=== PATIENT | male | born 1970 | race Caucasian/White ===

== ENCOUNTER 2023-11-12 15:01 | Inpatient (IN) | payer OTHER, BC ==
[~2023-11-12] VITALS: Ht 180.3 cm; Wt 100.0 kg
[2023-11-12] MEDS: normal saline 1000ml 1,000 ML IV SCH (03:21)
[2023-11-12] MEDS ORDERED: NO HOME MEDS (15:29)
[2023-11-12 15:43] LABS: BASOPHILS # (AUTO) 0.1 X10'3 (0-0.2); BASOPHILS % (AUTO) 0.7 % (0-1); EOSINOPHILS # (AUTO) 0.2 X10'3 (0-0.9); EOSINOPHILS % (AUTO) 0.8 % (0-6); HEMATOCRIT 32.2 % (42.0-52.0); HEMOGLOBIN 11.1 g/dl (14.0-17.9); LYMPHOCYTES # (AUTO) 2.3 X10'3 (1.1-4.8); LYMPHOCYTES % (AUTO) 11.5 % (21-51); MEAN CORPUSCULAR HEMOGLOBIN 34.6 PG (27.0-31.0); MEAN CORPUSCULAR HGB CONC 34.5 g/dL (33.0-36.5); MEAN CORPUSCULAR VOLUME 100.3 FL (78-98); MEAN PLATELET VOLUME 8.5 FL (7.4-10.4); MONOCYTES # (AUTO) 2.3 X10'3 (0-0.9); MONOCYTES % (AUTO) 11.6 % (2-12); NEUTROPHILS # (AUTO) 15.3 X10'3 (1.8-7.7); NEUTROPHILS % (AUTO) 75.4 % (42-75); PLATELET COUNT 301 X10'3 (140-440); RED BLOOD COUNT 3.21 X10'6 (4.70-6.10); RED CELL DISTRIBUTION WIDTH 18.7 % (11.5-14.5); WHITE BLOOD COUNT 20.2 X10'3 (4.5-11.0)
[2023-11-12 15:57] LABS: APTT 33 SECONDS (22-32); PROTHROMBIN TIME 20.3 SECONDS (9.0-12.0)
[2023-11-12 16:01] LABS: ANISOCYTOSIS 2+; PLATELET ESTIMATE NORMAL; TOTAL CELLS COUNTED 100
[2023-11-12 16:02] LABS: STOMATOCYTES FEW; TARGET CELLS FEW; TEAR DROP CELLS FEW
[2023-11-12 16:03] LABS: POIKILOCYTOSIS FEW
[2023-11-12 16:08] LABS: ALBUMIN 2.1 G/DL (3.4-5.0); ALKALINE PHOSPHATASE 86 IU/L (46-116); ANION GAP 26 (8-16); BLOOD UREA NITROGEN 67 MG/DL (7-18); CALCIUM 8.9 MG/DL (8.5-10.1); CHLORIDE 90 MMOL/L (99-107); SODIUM 134 MMOL/L (135-145); TOTAL CARBON DIOXIDE 18.3 MMOL/L (24-32)
[2023-11-12 16:32] LABS: GLUCOSE 133 MG/DL (70-104)
[2023-11-12 16:35] LABS: LACTIC SEPSIS 9.4 MMOL/L (0.4-2.0)
[2023-11-12 16:36] LABS: BUN/CREATININE RATIO 12.6 (10.0-20.0); CREATININE 5.31 MG/DL (0.60-1.10); POTASSIUM 2.9 MMOL/L (3.5-5.1); eCRCL 17 ML/MIN; eGFR 11 ML/MIN
[2023-11-12 16:37] LABS: BILIRUBIN,TOTAL 36.1 MG/DL (0.1-1.0); MAGNESIUM 2.1 MG/DL (1.5-2.4); TOTAL PROTEIN 4.9 G/DL (6.4-8.2)
[2023-11-12 16:39] LABS: ALBUMIN/GLOBULIN RATIO 0.8 (1.1-1.5)
[2023-11-12 16:40] LABS: ALANINE AMINOTRANSFERASE 126 U/L (12-78); ASPARTATE AMINO TRANSFERASE 269 U/L (10-37)
[2023-11-12] MEDS ORDERED: potassium 20mEq/D5LR 1000ml bag IV ONE (17:05)
[2023-11-12] MEDS ORDERED: potassium Cl 20mEq in D5-NS 1,000 ML IV ONE (17:15)
[2023-11-12 17:53] LABS: ABG HCO3 15.6 mmol/L (22.0-26.0); ABG OXYGEN SATURATION 93.3 % (94-97); ABG PCO2 (T) 20.9 mmHg (35.0-48.0); ABG PH (T) 7.492 (7.340-7.440); ABG PO2 (T) 72.2 mmHg (75.0-100.0); ALLEN'S TEST POSITIVE; FCOHb 0.7 % (0.0-3.9); FHHb 6.6 % (0.0-5.0); FMetHb 0.4 % (0.0-1.5); FO2Hb 92.3 % (94-97); MODE RA; TOTAL HEMOGLOBIN 10.6 G/dl (14.0-17.9)
[2023-11-12] MEDS: ringers solution, lacted 1,000 ML IV ONE (18:12)
[2023-11-12] MEDS: phenobarbital inj 130 MG in normal saline 100ml IV soln 99 ML IV ONE ×2 (18:29→22:17)
[2023-11-12] MEDS: potassium 20mEq/D5LR 1,000 ML IV ONE (20:14)
[2023-11-12] MEDS ORDERED: temazepam 15mg capsule PO PRN (21:00)
[2023-11-12] MEDS: LidoCAINE 2% Topical Jelly 11mL syringe (UROJET) TOP ONE (21:01)
[2023-11-12] MEDS ORDERED: magnesium 4gm in 100ml NS 100 ML IV PRN (21:10)
[2023-11-12] MEDS ORDERED: HYDROcodone/acetaminophen 10/325mg tab PO PRN (21:10)
[2023-11-12] MEDS ORDERED: ondansetron/PF 4mg/2ml inj IV PRN (21:10)
[2023-11-12] MEDS ORDERED: HYDROcodone/acetaminophen 5mg/325mg tablet PO PRN (21:10)
[2023-11-12] MEDS ORDERED: ondansetron 4mg rapidly disintigrating tab PO PRN (21:10)
[2023-11-12] MEDS ORDERED: magnesium 2GM in 50ml NS 50 ML IV PRN (21:10)
[2023-11-12] MEDS ORDERED: acetaminophen 325mg tablet PO PRN (21:10)
[2023-11-12] MEDS ORDERED: potassium Cl 20 mEq SR tablet PO PRN ×2 (21:10)
[2023-11-12] MEDS ORDERED: magnesium hydroxide 30ml (MOM) UD suspension PO PRN (21:10)
[2023-11-12] MEDS ORDERED: morphine 2 MG/ML inj. syringe IV PRN ×2 (21:10)
[2023-11-12] MEDS ORDERED: magnesium Cl slow-release 64mg tablet PO PRN (21:10)
[2023-11-12] MEDS ORDERED: mag hydrox/Alum hydrox/simeth 30ml oral suspension PO PRN (21:10)
[2023-11-12] MEDS ORDERED: dextrose 50%-water 50ml dispensing syringe IV PRN (21:20)
[2023-11-12] MEDS ORDERED: haloperidol lactate 5mg/ml inj IM PRN (21:20)
[2023-11-12] MEDS ORDERED: LORazepam 2 mg/ml vial IV PRN ×2 (21:20)
[2023-11-12 21:43] LABS: OCCULT BLOOD STOOL POSITIVE (Neg)
[2023-11-12] MEDS: diazepam inj 5 MG/ML inj. ONE (21:46)
[2023-11-12] MEDS ORDERED: pantoprazole 40mg Tablet.DR PO SCH (22:15)
[2023-11-12] MEDS: piperacillin/tazo 4.5gm/100ml 100 ML IV SCH (22:17)
[2023-11-12] MEDS: folic acid 1mg/0.2ml inj IV SCH (22:17)
[2023-11-12] MEDS: diazepam inj 5 MG/ML inj. IV ONE (22:18)
[2023-11-12 22:27] LABS: BILIRUBIN,URINE LARGE (Neg); CLARITY,URINE TURBID (Clear); COLOR,URINE GREEN (Yellow); GLUCOSE, URINE 100 mg/dl (Neg); KETONES,URINE TRACE mg/dl (Neg); LEUKOCYTE ESTERASE ,URINE NEGATIVE (Neg); NITRITES, URINE NEGATIVE (Neg); OCCULT BLOOD,URINE SMALL (Neg); PH,URINE 6.5 (4.8-8.0); PROTEIN,URINE 30 mg/dl (Neg)
[2023-11-12 22:38] LABS: UA COLLECTION TYPE STRAIGHT CATH
[2023-11-12 22:39] LABS: RBC,URINE 0-2 /HPF (0-2); SQUAMOUS EPITHELIAL CELL,UR FEW /LPF (FEW); TRANSITIONAL EPI CELLS,URINE FEW /HPF; WBC,URINE 0-4 /HPF (0-4)
[2023-11-12 22:40] LABS: AMORPHOUS PHOSPHATES 2+
[2023-11-12 22:41] LABS: BACTERIA,URINE 2+ /HPF (Neg); URINE AMPHETAMINE SCREEN NEGATIVE (Neg); URINE BARBITUATE SCREEN NEGATIVE (Neg); URINE BENZODIAZEPINES SCREEN NEGATIVE (Neg); URINE CANNABINOID SCREEN NEGATIVE (Neg); URINE COCAINE SCREEN NEGATIVE (Neg); URINE METHADONE SCREEN NEGATIVE (Neg); URINE OPIATE SCREEN NEGATIVE (Neg); URINE PHENCYCLIDINE SCREEN NEGATIVE (Neg)
[2023-11-12] MEDS: octreotide inj. 500 MCG in normal saline 100ml IV soln 97.5 ML IV SCH (23:00)
[2023-11-13] VITALS (10 sets, daily range): BP systolic 96–128; BP diastolic 42–64; PULSE 73–93; RESP 13–22; TEMP 98.5–99.5; O2SAT 91–95
[2023-11-13 01:27] LABS: APTT 36 SECONDS (22-32); INR 2.3 INR; PROTHROMBIN TIME 22.9 SECONDS (9.0-12.0)
[2023-11-13 01:39] LABS: MAGNESIUM 1.9 MG/DL (1.5-2.4)
[2023-11-13 01:42] LABS: PHOSPHORUS 5.4 MG/DL (2.3-4.5)
[2023-11-13] MEDS: normal saline 1000ml 1,000 ML IV SCH (02:09)
[2023-11-13] MEDS ORDERED: albumin (human) 25% 100 ML IV solution IV ONE (04:20)
[2023-11-13] MEDS: albumin (human) 25% 100 ML IV solution IV ONE (04:22)
[2023-11-13] MEDS: lactulose 20gm/30ml cup PO SCH (04:43)
[2023-11-13] MEDS: vancomycin/NS 1 GM ADD-VANTAGE 250 ML IV ONE (05:29)
[2023-11-13 06:29] LABS: BASOPHILS # (AUTO) 0.1 X10'3 (0-0.2); BASOPHILS % (AUTO) 0.7 % (0-1); EOSINOPHILS # (AUTO) 0.1 X10'3 (0-0.9); EOSINOPHILS % (AUTO) 1.6 % (0-6); HEMOGLOBIN 7.6 g/dl (14.0-17.9); LYMPHOCYTES # (AUTO) 1.2 X10'3 (1.1-4.8); LYMPHOCYTES % (AUTO) 13.9 % (21-51); MEAN CORPUSCULAR HEMOGLOBIN 35.5 PG (27.0-31.0); MEAN CORPUSCULAR VOLUME 101.4 FL (78-98); MONOCYTES % (AUTO) 12.2 % (2-12); NEUTROPHILS # (AUTO) 6.1 X10'3 (1.8-7.7); NEUTROPHILS % (AUTO) 71.6 % (42-75); PLATELET COUNT 127 X10'3 (140-440); RED BLOOD COUNT 2.14 X10'6 (4.70-6.10); RED CELL DISTRIBUTION WIDTH 19.2 % (11.5-14.5); WHITE BLOOD COUNT 8.6 X10'3 (4.5-11.0)
[2023-11-13 06:51] LABS: APTT 38 SECONDS (22-32); INR 2.4 INR; PROTHROMBIN TIME 24.2 SECONDS (9.0-12.0)
[2023-11-13 07:01] LABS: HEMATOCRIT 21.7 % (42.0-52.0)
[2023-11-13 07:15] LABS: ALANINE AMINOTRANSFERASE 115 U/L (12-78); ALBUMIN 2.4 G/DL (3.4-5.0); ALKALINE PHOSPHATASE 58 IU/L (46-116); ANION GAP 21 (8-16); BLOOD UREA NITROGEN 78 MG/DL (7-18); BUN/CREATININE RATIO 12.5 (10.0-20.0); CALCIUM 7.6 MG/DL (8.5-10.1); CHLORIDE 94 MMOL/L (99-107); CREATININE 6.22 MG/DL (0.60-1.10); SODIUM 132 MMOL/L (135-145); TOTAL CARBON DIOXIDE 17.2 MMOL/L (24-32); eCRCL 15 ML/MIN; eGFR 10 ML/MIN
[2023-11-13 07:18] LABS: ASPARTATE AMINO TRANSFERASE 245 U/L (10-37); BILIRUBIN,TOTAL 31.9 MG/DL (0.1-1.0); GLUCOSE 137 MG/DL (70-104); POTASSIUM 2.8 MMOL/L (3.5-5.1)
[2023-11-13 07:37] LABS: ALBUMIN/GLOBULIN RATIO 1.3 (1.1-1.5); TOTAL PROTEIN 4.3 G/DL (6.4-8.2)
[2023-11-13] MEDS ORDERED: thiamine 100mg/ml 2ml inj. IV SCH (08:00)
[2023-11-13] MEDS: K and/or MAG REPLACEMENT MC SCH (08:00)
[2023-11-13] MEDS: VANCOMYCIN 750MG IV in NS 250 ML IV ONE (08:56)
[2023-11-13] MEDS: potassium Cl 40MEQ/1/2NS 520ml 520 ML IV PRN (09:02)
[2023-11-13] MEDS: thiamine 100mg/ml 2ml inj. IV SCH (09:04)
[2023-11-13] MEDS ORDERED: octreotide inj. 500 MCG in normal saline 100ml IV soln 97.5 ML IV SCH (11:55)
[2023-11-13] MEDS: carvedilol 6.25mg tablet PO SCH (13:35)
[2023-11-13] MEDS ORDERED: piperacillin/tazo 3.375gm/50ml 100 ML IV SCH (13:47)
[2023-11-13 14:23] LABS: ALBUMIN 2.3 G/DL (3.4-5.0); ALKALINE PHOSPHATASE 57 IU/L (46-116); ANION GAP 16 (8-16); BLOOD UREA NITROGEN 89 MG/DL (7-18); CALCIUM 7.3 MG/DL (8.5-10.1); CHLORIDE 99 MMOL/L (99-107); SODIUM 134 MMOL/L (135-145); TOTAL CARBON DIOXIDE 19.3 MMOL/L (24-32)
[2023-11-13 14:29] LABS: ALANINE AMINOTRANSFERASE 115 U/L (12-78); ASPARTATE AMINO TRANSFERASE 235 U/L (10-37); BUN/CREATININE RATIO 14.9 (10.0-20.0); CREATININE 5.97 MG/DL (0.60-1.10); GLUCOSE 150 MG/DL (70-104); eCRCL 15 ML/MIN; eGFR 10 ML/MIN
[2023-11-13 14:42] LABS: ALBUMIN/GLOBULIN RATIO 1.2 (1.1-1.5); TOTAL PROTEIN 4.2 G/DL (6.4-8.2)
[2023-11-13] MEDS: octreotide inj. 500 MCG in normal saline 100ml IV soln 97.5 ML IV SCH (15:56)
[2023-11-13 16:07] LABS: C DIFF ANTIGEN POSITIVE (NEGATIVE); C DIFF SPECIMEN=DIARRHEA? ACCEPTABLE
[2023-11-13 16:10] LABS: C DIFFICILE TOXINS A&B POSITIVE (Neg)
[2023-11-13] MEDS ORDERED: vancomycin 250MG/10ML UD oral solution 10ML BOTTLE PO SCH (17:30)
[2023-11-13] MEDS ORDERED: rifaximin 550mg tablet PO SCH (20:00)
[2023-11-13] MEDS: VANCOMYCIN 125 MG/5 ML oral SOLN.RECON 5mL UD syringe (FIRVANQ) PO SCH (20:59)
[2023-11-13] MEDS: pantoprazole 40MG/NS 100ML BAG 100 ML IV SCH (21:05)
[2023-11-14] VITALS (8 sets, daily range): BP systolic 106–142; BP diastolic 50–78; PULSE 69–94; RESP 15–20; TEMP 96.5–99.1; O2SAT 93–96
[2023-11-14 04:59] LABS: EOSINOPHILS # (AUTO) 0.3 X10'3 (0-0.9); MEAN PLATELET VOLUME 8.3 FL (7.4-10.4); RED CELL DISTRIBUTION WIDTH 18.9 % (11.5-14.5)
[2023-11-14 05:00] LABS: BASOPHILS % (AUTO) 0.5 % (0-1); EOSINOPHILS % (AUTO) 2.9 % (0-6); LYMPHOCYTES # (AUTO) 1.2 X10'3 (1.1-4.8); LYMPHOCYTES % (AUTO) 12.4 % (21-51); MEAN CORPUSCULAR HEMOGLOBIN 36.1 PG (27.0-31.0); MEAN CORPUSCULAR HGB CONC 35.7 g/dL (33.0-36.5); MEAN CORPUSCULAR VOLUME 101.1 FL (78-98); MONOCYTES # (AUTO) 1.1 X10'3 (0-0.9); MONOCYTES % (AUTO) 11.4 % (2-12); NEUTROPHILS % (AUTO) 72.8 % (42-75); PLATELET COUNT 132 X10'3 (140-440); RED BLOOD COUNT 2.12 X10'6 (4.70-6.10); WHITE BLOOD COUNT 9.6 X10'3 (4.5-11.0)
[2023-11-14 05:17] LABS: HEMATOCRIT 21.4 % (42.0-52.0); HEMOGLOBIN 7.6 g/dl (14.0-17.9)
[2023-11-14 05:20] LABS: APTT 37 SECONDS (22-32); INR 2.3 INR; PROTHROMBIN TIME 22.9 SECONDS (9.0-12.0)
[2023-11-14 05:32] LABS: ALANINE AMINOTRANSFERASE 104 U/L (12-78); ALBUMIN 2.1 G/DL (3.4-5.0); ANION GAP 18 (8-16); BLOOD UREA NITROGEN 97 MG/DL (7-18); BUN/CREATININE RATIO 16.7 (10.0-20.0); CALCIUM 6.9 MG/DL (8.5-10.1); CHLORIDE 102 MMOL/L (99-107); SODIUM 137 MMOL/L (135-145); TOTAL CARBON DIOXIDE 17.4 MMOL/L (24-32); eCRCL 16 ML/MIN; eGFR 10 ML/MIN
[2023-11-14 05:38] LABS: ALKALINE PHOSPHATASE 58 IU/L (46-116); ASPARTATE AMINO TRANSFERASE 214 U/L (10-37); BILIRUBIN,TOTAL 34.7 MG/DL (0.1-1.0); GLUCOSE 137 MG/DL (70-104); MAGNESIUM 2.1 MG/DL (1.5-2.4); PHOSPHORUS 2.7 MG/DL (2.3-4.5)
[2023-11-14 05:54] LABS: ALBUMIN/GLOBULIN RATIO 1.1 (1.1-1.5); TOTAL PROTEIN 4.1 G/DL (6.4-8.2)
[2023-11-14 06:01] LABS: POTASSIUM 2.8 MMOL/L (3.5-5.1)
[2023-11-14 06:12] LABS: ANISOCYTOSIS 2+; PLATELET ESTIMATE DECREASED; TOTAL CELLS COUNTED 100
[2023-11-15] VITALS (8 sets, daily range): BP systolic 90–158; BP diastolic 55–92; PULSE 64–91; RESP 14–22; TEMP 97–98; O2SAT 94–98
[2023-11-15 05:57] LABS: HBSAG SCREEN Negative (Negative); HEP A AB, IGM Negative (Negative); HEP B CORE AB, IGM Negative (Negative); HEPATITIS C VIRUS ANTIBODY Non Reactive (Non Reactive)
[2023-11-15 08:07] LABS: BASOPHILS # (AUTO) 0.1 X10'3 (0-0.2); BASOPHILS % (AUTO) 0.9 % (0-1); EOSINOPHILS # (AUTO) 0.5 X10'3 (0-0.9); EOSINOPHILS % (AUTO) 4.6 % (0-6); HEMOGLOBIN 7.1 g/dl (14.0-17.9); LYMPHOCYTES # (AUTO) 1.6 X10'3 (1.1-4.8); MEAN CORPUSCULAR HEMOGLOBIN 36.4 PG (27.0-31.0); MEAN CORPUSCULAR HGB CONC 36.3 g/dL (33.0-36.5); MEAN CORPUSCULAR VOLUME 100.2 FL (78-98); MEAN PLATELET VOLUME 8.1 FL (7.4-10.4); MONOCYTES % (AUTO) 10.3 % (2-12); NEUTROPHILS # (AUTO) 6.9 X10'3 (1.8-7.7); NEUTROPHILS % (AUTO) 68.2 % (42-75); PLATELET COUNT 129 X10'3 (140-440); RED BLOOD COUNT 1.96 X10'6 (4.70-6.10); RED CELL DISTRIBUTION WIDTH 18.9 % (11.5-14.5); WHITE BLOOD COUNT 10.1 X10'3 (4.5-11.0)
[2023-11-15 08:12] LABS: HEMATOCRIT 19.6 % (42.0-52.0)
[2023-11-15 08:13] LABS: APTT 37 SECONDS (22-32); PROTHROMBIN TIME 20.3 SECONDS (9.0-12.0)
[2023-11-15 08:35] LABS: ALBUMIN 1.9 G/DL (3.4-5.0); ALKALINE PHOSPHATASE 62 IU/L (46-116); ANION GAP 12 (8-16); BLOOD UREA NITROGEN 100 MG/DL (7-18); CALCIUM 6.3 MG/DL (8.5-10.1); CHLORIDE 107 MMOL/L (99-107); SODIUM 136 MMOL/L (135-145); TOTAL CARBON DIOXIDE 17.5 MMOL/L (24-32)
[2023-11-15 08:38] LABS: NUCLEATED RED BLOOD CELLS 1 /100WBC (0-0); PLATELET ESTIMATE DECREASED; TOTAL CELLS COUNTED 100
[2023-11-15 08:39] LABS: ANISOCYTOSIS 2+
[2023-11-15 08:40] LABS: POIKILOCYTOSIS FEW; POLYCHROMASIA FEW; SMUDGE CELLS FEW
[2023-11-15 09:23] LABS: ALANINE AMINOTRANSFERASE 100 U/L (12-78); ASPARTATE AMINO TRANSFERASE 187 U/L (10-37); BILIRUBIN,TOTAL 33.7 MG/DL (0.1-1.0); BUN/CREATININE RATIO 21.8 (10.0-20.0); CREATININE 4.59 MG/DL (0.60-1.10); GLUCOSE 138 MG/DL (70-104); MAGNESIUM 2.1 MG/DL (1.5-2.4); PHOSPHORUS 2.6 MG/DL (2.3-4.5); eCRCL 20 ML/MIN; eGFR 14 ML/MIN
[2023-11-15 09:26] LABS: ALBUMIN/GLOBULIN RATIO 1.1 (1.1-1.5); TOTAL PROTEIN 3.7 G/DL (6.4-8.2)
[2023-11-15 09:28] LABS: POTASSIUM 2.7 MMOL/L (3.5-5.1)
[2023-11-15] MEDS ORDERED: LORazepam 2 mg/ml vial IV PRN (10:05)
[2023-11-15] MEDS ORDERED: Potassium Cl inj 20 MEQ in normal saline 1000ml 990 ML IV SCH (10:10)
[2023-11-15] MEDS: potassium Cl 20mEq in NS 1,000 ML IV SCH (11:01)
[2023-11-16] VITALS (8 sets, daily range): BP systolic 107–150; BP diastolic 47–60; PULSE 70–99; RESP 13–22; TEMP 97.3–98.2; O2SAT 94–100
[2023-11-16 06:44] LABS: BASOPHILS # (AUTO) 0.2 X10'3 (0-0.2); BASOPHILS % (AUTO) 1.3 % (0-1); EOSINOPHILS # (AUTO) 0.6 X10'3 (0-0.9); EOSINOPHILS % (AUTO) 4.3 % (0-6); HEMOGLOBIN 7.6 g/dl (14.0-17.9); LYMPHOCYTES # (AUTO) 1.8 X10'3 (1.1-4.8); LYMPHOCYTES % (AUTO) 13.8 % (21-51); MEAN CORPUSCULAR HEMOGLOBIN 35.4 PG (27.0-31.0); MEAN CORPUSCULAR VOLUME 100.9 FL (78-98); MEAN PLATELET VOLUME 7.7 FL (7.4-10.4); MONOCYTES # (AUTO) 1.3 X10'3 (0-0.9); NEUTROPHILS # (AUTO) 9.3 X10'3 (1.8-7.7); NEUTROPHILS % (AUTO) 70.6 % (42-75); PLATELET COUNT 168 X10'3 (140-440); RED BLOOD COUNT 2.15 X10'6 (4.70-6.10); RED CELL DISTRIBUTION WIDTH 19.1 % (11.5-14.5); WHITE BLOOD COUNT 13.2 X10'3 (4.5-11.0)
[2023-11-16 06:45] LABS: INR 1.8 INR; PROTHROMBIN TIME 18.4 SECONDS (9.0-12.0)
[2023-11-16 06:47] LABS: HEMATOCRIT 21.7 % (42.0-52.0)
[2023-11-16 07:07] LABS: ALANINE AMINOTRANSFERASE 100 U/L (12-78); ALBUMIN 1.9 G/DL (3.4-5.0); ALKALINE PHOSPHATASE 78 IU/L (46-116); ANION GAP 15 (8-16); BLOOD UREA NITROGEN 86 MG/DL (7-18); BUN/CREATININE RATIO 22.8 (10.0-20.0); CALCIUM 6.1 MG/DL (8.5-10.1); CHLORIDE 104 MMOL/L (99-107); CREATININE 3.78 MG/DL (0.60-1.10); SODIUM 132 MMOL/L (135-145); eCRCL 24 ML/MIN; eGFR 17 ML/MIN
[2023-11-16 07:13] LABS: ANISOCYTOSIS 2+; NUCLEATED RED BLOOD CELLS 1 /100WBC (0-0); PLATELET ESTIMATE NORMAL; TOTAL CELLS COUNTED 100
[2023-11-16 07:14] LABS: POLYCHROMASIA 2+; TARGET CELLS FEW
[2023-11-16 07:15] LABS: POIKILOCYTOSIS FEW
[2023-11-16 07:26] LABS: ASPARTATE AMINO TRANSFERASE 191 U/L (10-37); BILIRUBIN,TOTAL 35.8 MG/DL (0.1-1.0); GLUCOSE 141 MG/DL (70-104); PHOSPHORUS 2.6 MG/DL (2.3-4.5); TOTAL PROTEIN 3.8 G/DL (6.4-8.2)
[2023-11-16 07:29] LABS: POTASSIUM 2.9 MMOL/L (3.5-5.1); TOTAL CARBON DIOXIDE 13.2 MMOL/L (24-32)
[2023-11-16] MEDS ORDERED: thiamine 100mg/ml 2ml inj. IV SCH (08:00)
[2023-11-16] MEDS ORDERED: potassium Cl 40MEQ/1/2NS 520ml 520 ML IV PRN (16:50)
[2023-11-16] MEDS ORDERED: magnesium 4gm in 100ml NS 100 ML IV PRN (16:50)
[2023-11-16] MEDS ORDERED: magnesium 2GM in 50ml NS 50 ML IV PRN (16:50)
[2023-11-16] MEDS ORDERED: magnesium Cl slow-release 64mg tablet PO PRN (16:50)
[2023-11-16 18:41] LABS: BASOPHILS # (AUTO) 0.1 X10'3 (0-0.2); HEMATOCRIT 22.3 % (42.0-52.0); LYMPHOCYTES % (AUTO) 10.9 % (21-51)
[2023-11-16 18:43] LABS: EOSINOPHILS # (AUTO) 0.5 X10'3 (0-0.9); EOSINOPHILS % (AUTO) 3.7 % (0-6); HEMOGLOBIN 7.8 g/dl (14.0-17.9); LYMPHOCYTES # (AUTO) 1.5 X10'3 (1.1-4.8); MEAN CORPUSCULAR HEMOGLOBIN 35.7 PG (27.0-31.0); MEAN CORPUSCULAR HGB CONC 35.1 g/dL (33.0-36.5); MEAN CORPUSCULAR VOLUME 101.6 FL (78-98); MONOCYTES # (AUTO) 1.5 X10'3 (0-0.9); MONOCYTES % (AUTO) 10.4 % (2-12); NEUTROPHILS # (AUTO) 10.5 X10'3 (1.8-7.7); PLATELET COUNT 175 X10'3 (140-440); RED CELL DISTRIBUTION WIDTH 19.1 % (11.5-14.5); WHITE BLOOD COUNT 14.2 X10'3 (4.5-11.0)
[2023-11-16 19:09] LABS: ALBUMIN 1.9 G/DL (3.4-5.0); ALKALINE PHOSPHATASE 97 IU/L (46-116); BLOOD UREA NITROGEN 82 MG/DL (7-18); CALCIUM 6.6 MG/DL (8.5-10.1)
[2023-11-16 19:34] LABS: TOTAL CELLS COUNTED 100
[2023-11-16 19:35] LABS: ANISOCYTOSIS 2+; PLATELET ESTIMATE NORMAL; POIKILOCYTOSIS FEW; POLYCHROMASIA 1+
[2023-11-16 19:36] LABS: TARGET CELLS FEW
[2023-11-16 19:45] LABS: ALANINE AMINOTRANSFERASE 98 U/L (12-78); ALBUMIN/GLOBULIN RATIO 0.9 (1.1-1.5); ANION GAP 21 (8-16); ASPARTATE AMINO TRANSFERASE 176 U/L (10-37); BUN/CREATININE RATIO 24.9 (10.0-20.0); CHLORIDE 101 MMOL/L (99-107); CREATININE 3.29 MG/DL (0.60-1.10); GLUCOSE 137 MG/DL (70-104); SODIUM 136 MMOL/L (135-145); eCRCL 28 ML/MIN; eGFR 20 ML/MIN
[2023-11-16 20:17] LABS: BILIRUBIN,TOTAL 37.1 MG/DL (0.1-1.0)
[2023-11-16 20:23] LABS: POTASSIUM 2.9 MMOL/L (3.5-5.1); TOTAL CARBON DIOXIDE 13.8 MMOL/L (24-32)
[2023-11-16] MEDS: rifaximin 550mg tablet PO SCH (20:40)
[2023-11-17] VITALS (8 sets, daily range): BP systolic 109–159; BP diastolic 49–89; PULSE 70–84; RESP 12–28; TEMP 97–97.8; O2SAT 94–99
[2023-11-17 06:51] LABS: BASOPHILS # (AUTO) 0.1 X10'3 (0-0.2); BASOPHILS % (AUTO) 0.7 % (0-1); EOSINOPHILS # (AUTO) 0.5 X10'3 (0-0.9); EOSINOPHILS % (AUTO) 3.8 % (0-6); HEMATOCRIT 22.1 % (42.0-52.0); HEMOGLOBIN 7.6 g/dl (14.0-17.9); LYMPHOCYTES # (AUTO) 1.1 X10'3 (1.1-4.8); LYMPHOCYTES % (AUTO) 9.4 % (21-51); MEAN CORPUSCULAR HEMOGLOBIN 35.6 PG (27.0-31.0); MEAN CORPUSCULAR HGB CONC 34.3 g/dL (33.0-36.5); MEAN CORPUSCULAR VOLUME 103.9 FL (78-98); MEAN PLATELET VOLUME 7.5 FL (7.4-10.4); MONOCYTES # (AUTO) 1.1 X10'3 (0-0.9); MONOCYTES % (AUTO) 9.3 % (2-12); NEUTROPHILS # (AUTO) 9.3 X10'3 (1.8-7.7); NEUTROPHILS % (AUTO) 76.8 % (42-75); PLATELET COUNT 154 X10'3 (140-440); RED BLOOD COUNT 2.12 X10'6 (4.70-6.10); RED CELL DISTRIBUTION WIDTH 19.5 % (11.5-14.5); WHITE BLOOD COUNT 12.1 X10'3 (4.5-11.0)
[2023-11-17 06:59] LABS: INR 1.7 INR; PROTHROMBIN TIME 17.5 SECONDS (9.0-12.0)
[2023-11-17 07:19] LABS: ALBUMIN 1.9 G/DL (3.4-5.0); ALKALINE PHOSPHATASE 109 IU/L (46-116); ANION GAP 15 (8-16); BLOOD UREA NITROGEN 78 MG/DL (7-18); CALCIUM 6.5 MG/DL (8.5-10.1); CHLORIDE 106 MMOL/L (99-107); SODIUM 134 MMOL/L (135-145)
[2023-11-17 07:34] LABS: ANISOCYTOSIS 2+; PLATELET ESTIMATE NORMAL; TOTAL CELLS COUNTED 100
[2023-11-17 07:35] LABS: POIKILOCYTOSIS FEW; POLYCHROMASIA 1+
[2023-11-17 07:39] LABS: ALANINE AMINOTRANSFERASE 99 U/L (12-78); BUN/CREATININE RATIO 26.2 (10.0-20.0); CREATININE 2.98 MG/DL (0.60-1.10); GLUCOSE 149 MG/DL (70-104); PHOSPHORUS 2.8 MG/DL (2.3-4.5); TOTAL PROTEIN 3.9 G/DL (6.4-8.2); eCRCL 31 ML/MIN; eGFR 22 ML/MIN
[2023-11-17 07:43] LABS: BILIRUBIN,TOTAL 36.9 MG/DL (0.1-1.0)
[2023-11-17 07:47] LABS: TOTAL CARBON DIOXIDE 13.1 MMOL/L (24-32)
[2023-11-17 08:10] LABS: ASPARTATE AMINO TRANSFERASE 185 U/L (10-37)
[2023-11-17] MEDS: folic acid 1mg tablet PO SCH (09:11)
[2023-11-17] MEDS: thiamine 100mg tablet PO SCH (09:11)
[2023-11-17] MEDS ORDERED: spironolactone 25 MG tablet PO ONE (09:15)
[2023-11-17] MEDS: spironolactone 50 MG tablet PO ONE (13:32)
[2023-11-18] VITALS (7 sets, daily range): BP systolic 100–136; BP diastolic 45–70; PULSE 61–79; RESP 13–20; TEMP 97.3–98; O2SAT 97–100
[2023-11-18 10:00] LABS: BASOPHILS # (AUTO) 0.1 X10'3 (0-0.2); BASOPHILS % (AUTO) 0.7 % (0-1); EOSINOPHILS # (AUTO) 0.4 X10'3 (0-0.9); EOSINOPHILS % (AUTO) 2.9 % (0-6); HEMATOCRIT 24.4 % (42.0-52.0); HEMOGLOBIN 8.3 g/dl (14.0-17.9); LYMPHOCYTES # (AUTO) 0.8 X10'3 (1.1-4.8); LYMPHOCYTES % (AUTO) 6.2 % (21-51); MEAN CORPUSCULAR HEMOGLOBIN 35.4 PG (27.0-31.0); MEAN CORPUSCULAR HGB CONC 34.2 g/dL (33.0-36.5); MEAN CORPUSCULAR VOLUME 103.5 FL (78-98); MEAN PLATELET VOLUME 7.6 FL (7.4-10.4); MONOCYTES # (AUTO) 1.1 X10'3 (0-0.9); MONOCYTES % (AUTO) 8.1 % (2-12); NEUTROPHILS # (AUTO) 11.1 X10'3 (1.8-7.7); NEUTROPHILS % (AUTO) 82.1 % (42-75); PLATELET COUNT 144 X10'3 (140-440); RED BLOOD COUNT 2.36 X10'6 (4.70-6.10); RED CELL DISTRIBUTION WIDTH 21.4 % (11.5-14.5); WHITE BLOOD COUNT 13.6 X10'3 (4.5-11.0)
[2023-11-18 10:14] LABS: ALANINE AMINOTRANSFERASE 96 U/L (12-78); ALBUMIN 1.8 G/DL (3.4-5.0); ANION GAP 15 (8-16); BLOOD UREA NITROGEN 61 MG/DL (7-18); BUN/CREATININE RATIO 20.7 (10.0-20.0); CALCIUM 6.4 MG/DL (8.5-10.1); CHLORIDE 107 MMOL/L (99-107); CREATININE 2.94 MG/DL (0.60-1.10); SODIUM 134 MMOL/L (135-145); eCRCL 31 ML/MIN; eGFR 23 ML/MIN
[2023-11-18 10:34] LABS: ALBUMIN/GLOBULIN RATIO 0.8 (1.1-1.5); ASPARTATE AMINO TRANSFERASE 165 U/L (10-37); BILIRUBIN,TOTAL 35.5 MG/DL (0.1-1.0); GLUCOSE 178 MG/DL (70-104); POTASSIUM 3.2 MMOL/L (3.5-5.1); TOTAL PROTEIN 4.2 G/DL (6.4-8.2)
[2023-11-18 10:36] LABS: TOTAL CARBON DIOXIDE 12.1 MMOL/L (24-32)
[2023-11-18 10:48] LABS: TOTAL CELLS COUNTED 100
[2023-11-18 10:50] LABS: ANISOCYTOSIS 3+; PLATELET ESTIMATE NORMAL
[2023-11-18 10:52] LABS: POLYCHROMASIA FEW; STOMATOCYTES FEW; TARGET CELLS FEW; TEAR DROP CELLS 1+
[2023-11-18 10:59] LABS: ALKALINE PHOSPHATASE 109 IU/L (46-116)
[2023-11-18] MEDS: sodium bicarbonate 650mg tablet PO SCH (17:45)
[2023-11-19] VITALS (9 sets, daily range): BP systolic 93–119; BP diastolic 52–65; PULSE 66–78; RESP 11–20; TEMP 95.6–98.4; O2SAT 96–98
[2023-11-19 07:18] LABS: ALBUMIN 1.6 G/DL (3.4-5.0); ANION GAP 15 (8-16); BLOOD UREA NITROGEN 59 MG/DL (7-18); CALCIUM 6.4 MG/DL (8.5-10.1); CHLORIDE 111 MMOL/L (99-107); SODIUM 136 MMOL/L (135-145)
[2023-11-19 07:32] LABS: ALANINE AMINOTRANSFERASE 87 U/L (12-78); ALKALINE PHOSPHATASE 121 IU/L (46-116); ASPARTATE AMINO TRANSFERASE 160 U/L (10-37)
[2023-11-19 07:33] LABS: BILIRUBIN,TOTAL 34.6 MG/DL (0.1-1.0); BUN/CREATININE RATIO 20.6 (10.0-20.0); CREATININE 2.86 MG/DL (0.60-1.10); GLUCOSE 136 MG/DL (70-104); POTASSIUM 3.7 MMOL/L (3.5-5.1); eCRCL 32 ML/MIN; eGFR 23 ML/MIN
[2023-11-19 07:36] LABS: ALBUMIN/GLOBULIN RATIO 0.7 (1.1-1.5); TOTAL PROTEIN 3.8 G/DL (6.4-8.2)
[2023-11-19 09:29] LABS: BASOPHILS # (AUTO) 0.1 X10'3 (0-0.2); BASOPHILS % (AUTO) 0.7 % (0-1); EOSINOPHILS # (AUTO) 0.4 X10'3 (0-0.9); EOSINOPHILS % (AUTO) 3.1 % (0-6); HEMATOCRIT 25.1 % (42.0-52.0); HEMOGLOBIN 8.6 g/dl (14.0-17.9); LYMPHOCYTES % (AUTO) 7.9 % (21-51); MEAN CORPUSCULAR HEMOGLOBIN 35.7 PG (27.0-31.0); MEAN CORPUSCULAR HGB CONC 34.3 g/dL (33.0-36.5); MEAN PLATELET VOLUME 7.9 FL (7.4-10.4); MONOCYTES # (AUTO) 1.2 X10'3 (0-0.9); MONOCYTES % (AUTO) 9.5 % (2-12); NEUTROPHILS % (AUTO) 78.8 % (42-75); PLATELET COUNT 138 X10'3 (140-440); RED BLOOD COUNT 2.42 X10'6 (4.70-6.10); RED CELL DISTRIBUTION WIDTH 21.9 % (11.5-14.5); WHITE BLOOD COUNT 12.7 X10'3 (4.5-11.0)
[2023-11-19] MEDS: sodium bicarbonate 1meq/ml inj 150 ML in dextrose 5%-water 1,000 ML IV SCH (10:44)
[2023-11-19 10:53] LABS: TOTAL CELLS COUNTED 100
[2023-11-19 10:54] LABS: PLATELET ESTIMATE DECREASED
[2023-11-19 10:55] LABS: ANISOCYTOSIS 3+; TEAR DROP CELLS FEW
[2023-11-20] VITALS (7 sets, daily range): BP systolic 114–126; BP diastolic 53–68; PULSE 70–81; RESP 12–20; TEMP 97.3–98.2; O2SAT 96–98
[2023-11-20 09:10] LABS: BASOPHILS # (AUTO) 0.1 X10'3 (0-0.2); BASOPHILS % (AUTO) 0.5 % (0-1); EOSINOPHILS # (AUTO) 0.4 X10'3 (0-0.9); EOSINOPHILS % (AUTO) 3.9 % (0-6); HEMATOCRIT 25.1 % (42.0-52.0); HEMOGLOBIN 8.7 g/dl (14.0-17.9); MEAN CORPUSCULAR HEMOGLOBIN 35.7 PG (27.0-31.0); MEAN CORPUSCULAR HGB CONC 34.6 g/dL (33.0-36.5); MEAN CORPUSCULAR VOLUME 103.2 FL (78-98); MEAN PLATELET VOLUME 8.3 FL (7.4-10.4); MONOCYTES % (AUTO) 9.5 % (2-12); NEUTROPHILS # (AUTO) 7.8 X10'3 (1.8-7.7); NEUTROPHILS % (AUTO) 76.1 % (42-75); PLATELET COUNT 119 X10'3 (140-440); RED BLOOD COUNT 2.43 X10'6 (4.70-6.10); RED CELL DISTRIBUTION WIDTH 21.3 % (11.5-14.5); WHITE BLOOD COUNT 10.3 X10'3 (4.5-11.0)
[2023-11-20 09:28] LABS: APTT 32 SECONDS (22-32); INR 1.5 INR; PROTHROMBIN TIME 16.1 SECONDS (9.0-12.0)
[2023-11-20 09:31] LABS: TOTAL CELLS COUNTED 100
[2023-11-20 09:32] LABS: ANISOCYTOSIS 3+; PLATELET ESTIMATE DECREASED; POLYCHROMASIA FEW; SMUDGE CELLS FEW; TEAR DROP CELLS FEW
[2023-11-20 09:33] LABS: TARGET CELLS FEW
[2023-11-20 09:53] LABS: ALANINE AMINOTRANSFERASE 98 U/L (12-78); ALBUMIN 1.6 G/DL (3.4-5.0); ALKALINE PHOSPHATASE 170 IU/L (46-116); ANION GAP 14 (8-16); ASPARTATE AMINO TRANSFERASE 139 U/L (10-37); BILIRUBIN,TOTAL 33.8 MG/DL (0.1-1.0); BLOOD UREA NITROGEN 57 MG/DL (7-18); BUN/CREATININE RATIO 17.6 (10.0-20.0); CALCIUM 6.3 MG/DL (8.5-10.1); CHLORIDE 107 MMOL/L (99-107); CREATININE 3.23 MG/DL (0.60-1.10); GLUCOSE 139 MG/DL (70-104); MAGNESIUM 2.1 MG/DL (1.5-2.4); SODIUM 137 MMOL/L (135-145); TOTAL CARBON DIOXIDE 15.6 MMOL/L (24-32); eCRCL 28 ML/MIN; eGFR 20 ML/MIN
[2023-11-20 10:04] LABS: POTASSIUM 2.8 MMOL/L (3.5-5.1)
[2023-11-20] MEDS: potassium Cl 20 mEq SR tablet PO PRN (10:09)
[2023-11-20 10:16] LABS: ALBUMIN/GLOBULIN RATIO 0.6 (1.1-1.5); TOTAL PROTEIN 4.2 G/DL (6.4-8.2)
[2023-11-20] MEDS: albumin (human) 25% 100ml IV 100 ML IV SCH (17:01)
[2023-11-20] MEDS: lactose-reduced food (Ensure Enlive) - 237ml bottle PO SCH (17:09)
[2023-11-20] MEDS: spironolactone 50 MG tablet PO SCH (20:33)
[2023-11-21] VITALS (8 sets, daily range): BP systolic 104–129; BP diastolic 51–80; PULSE 67–80; RESP 15–20; TEMP 97.8–98.7; O2SAT 94–98
[2023-11-21 08:05] LABS: BASOPHILS # (AUTO) 0.1 X10'3 (0-0.2); BASOPHILS % (AUTO) 0.8 % (0-1); EOSINOPHILS # (AUTO) 0.3 X10'3 (0-0.9); HEMATOCRIT 24.2 % (42.0-52.0); HEMOGLOBIN 8.2 g/dl (14.0-17.9); LYMPHOCYTES # (AUTO) 1.1 X10'3 (1.1-4.8); LYMPHOCYTES % (AUTO) 11.3 % (21-51); MEAN CORPUSCULAR HEMOGLOBIN 35.3 PG (27.0-31.0); MEAN CORPUSCULAR HGB CONC 33.9 g/dL (33.0-36.5); MEAN CORPUSCULAR VOLUME 104.3 FL (78-98); MEAN PLATELET VOLUME 8.1 FL (7.4-10.4); MONOCYTES # (AUTO) 1.1 X10'3 (0-0.9); MONOCYTES % (AUTO) 10.4 % (2-12); NEUTROPHILS # (AUTO) 7.6 X10'3 (1.8-7.7); NEUTROPHILS % (AUTO) 74.5 % (42-75); PLATELET COUNT 111 X10'3 (140-440); RED BLOOD COUNT 2.32 X10'6 (4.70-6.10); WHITE BLOOD COUNT 10.1 X10'3 (4.5-11.0)
[2023-11-21 08:33] LABS: ALBUMIN 2.2 G/DL (3.4-5.0); ALKALINE PHOSPHATASE 159 IU/L (46-116); ANION GAP 14 (8-16); BLOOD UREA NITROGEN 54 MG/DL (7-18); CALCIUM 6.8 MG/DL (8.5-10.1); CHLORIDE 109 MMOL/L (99-107); SODIUM 137 MMOL/L (135-145)
[2023-11-21 08:34] LABS: ALANINE AMINOTRANSFERASE 89 U/L (12-78); ASPARTATE AMINO TRANSFERASE 123 U/L (10-37); BILIRUBIN,TOTAL 36.7 MG/DL (0.1-1.0); BUN/CREATININE RATIO 17.2 (10.0-20.0); CREATININE 3.14 MG/DL (0.60-1.10); GLUCOSE 119 MG/DL (70-104); MAGNESIUM 2.1 MG/DL (1.5-2.4); PHOSPHORUS 3.3 MG/DL (2.3-4.5); POTASSIUM 3.4 MMOL/L (3.5-5.1); eCRCL 29 ML/MIN; eGFR 21 ML/MIN
[2023-11-21 08:36] LABS: TOTAL CELLS COUNTED 100
[2023-11-21 08:37] LABS: ANISOCYTOSIS 3+; BURR CELLS FEW; PLATELET ESTIMATE DECREASED; POLYCHROMASIA FEW; TEAR DROP CELLS FEW
[2023-11-21 08:50] LABS: TOTAL PROTEIN 4.4 G/DL (6.4-8.2)
[2023-11-21 09:00] LABS: TOTAL CARBON DIOXIDE 14.4 MMOL/L (24-32)
[2023-11-21] MEDS: potassium Cl 20 mEq SR tablet PO PRN (09:13)
[2023-11-22 02:00] VITALS: BP 112/62; PULSE 75; RESP 19; TEMP 98; O2SAT 98
[2023-11-22 06:00] VITALS: BP 113/64; PULSE 76; RESP 17; TEMP 98.4; O2SAT 98
[2023-11-22 06:45] LABS: BASOPHILS # (AUTO) 0.1 X10'3 (0-0.2); BASOPHILS % (AUTO) 0.7 % (0-1); EOSINOPHILS # (AUTO) 0.2 X10'3 (0-0.9); EOSINOPHILS % (AUTO) 2.7 % (0-6); HEMOGLOBIN 7.4 g/dl (14.0-17.9); LYMPHOCYTES # (AUTO) 1.1 X10'3 (1.1-4.8); LYMPHOCYTES % (AUTO) 12.4 % (21-51); MEAN CORPUSCULAR HGB CONC 34.9 g/dL (33.0-36.5); MEAN CORPUSCULAR VOLUME 103.3 FL (78-98); MEAN PLATELET VOLUME 8.3 FL (7.4-10.4); MONOCYTES # (AUTO) 0.9 X10'3 (0-0.9); MONOCYTES % (AUTO) 10.5 % (2-12); NEUTROPHILS # (AUTO) 6.2 X10'3 (1.8-7.7); NEUTROPHILS % (AUTO) 73.7 % (42-75); PLATELET COUNT 87 X10'3 (140-440); RED BLOOD COUNT 2.06 X10'6 (4.70-6.10); RED CELL DISTRIBUTION WIDTH 20.5 % (11.5-14.5); WHITE BLOOD COUNT 8.4 X10'3 (4.5-11.0)
[2023-11-22 06:56] LABS: HEMATOCRIT 21.2 % (42.0-52.0)
[2023-11-22 07:21] LABS: ALBUMIN 2.5 G/DL (3.4-5.0); ALKALINE PHOSPHATASE 127 IU/L (46-116); ANION GAP 14 (8-16); BLOOD UREA NITROGEN 51 MG/DL (7-18); CHLORIDE 110 MMOL/L (99-107); SODIUM 136 MMOL/L (135-145)
[2023-11-22 07:29] LABS: ALANINE AMINOTRANSFERASE 73 U/L (12-78); ASPARTATE AMINO TRANSFERASE 96 U/L (10-37); BILIRUBIN,TOTAL 36.2 MG/DL (0.1-1.0); BUN/CREATININE RATIO 16.7 (10.0-20.0); CREATININE 3.06 MG/DL (0.60-1.10); GLUCOSE 145 MG/DL (70-104); MAGNESIUM 2.3 MG/DL (1.5-2.4); PHOSPHORUS 3.1 MG/DL (2.3-4.5); POTASSIUM 3.8 MMOL/L (3.5-5.1); eCRCL 30 ML/MIN; eGFR 22 ML/MIN
[2023-11-22 07:31] LABS: ANISOCYTOSIS 3+; PLATELET ESTIMATE DECREASED; TOTAL CELLS COUNTED 100
[2023-11-22 07:34] LABS: TEAR DROP CELLS FEW
[2023-11-22 07:35] LABS: POLYCHROMASIA FEW; SCHISTOCYTES FEW; STOMATOCYTES FEW
[2023-11-22 07:36] LABS: BURR CELLS FEW
[2023-11-22 07:37] LABS: ALBUMIN/GLOBULIN RATIO 1.3 (1.1-1.5); TOTAL PROTEIN 4.4 G/DL (6.4-8.2)
[2023-11-22 07:40] LABS: METAMYLEOCYTES% (MANUAL) 1 % (0-0)
[2023-11-22 07:45] LABS: TOTAL CARBON DIOXIDE 12.4 MMOL/L (24-32)
[2023-11-22 11:13] VITALS: BP 124/64; PULSE 69; RESP 18; TEMP 97.7; O2SAT 97
[2023-11-22] MEDS: sodium bicarbonate 1meq/ml inj 150 ML in dextrose 5%-water 1,000 ML IV SCH (12:04)
[2023-11-22 18:00] VITALS: BP 126/52; PULSE 72; RESP 19; TEMP 97.4; O2SAT 96
[2023-11-22] MEDS: lactose-reduced food (Ensure High Protein) 237ml bottle PO SCH (18:00)
[2023-11-22] MEDS: PERFLUTREN PROTEIN-A MICROSPHR (Optison) 0.22 MG/ML 3ML VIAL IV ONE (21:19)
[2023-11-22] MEDS: furosemide 40mg/4ml inj IV SCH (21:36)
[2023-11-22 22:00] VITALS: BP 142/70; PULSE 80; RESP 20; TEMP 97.6; O2SAT 96
[2023-11-23] VITALS (7 sets, daily range): BP systolic 122–138; BP diastolic 64–70; PULSE 64–82; RESP 16–24; TEMP 98–98.2; O2SAT 93–100
[2023-11-23 06:59] LABS: BASOPHILS # (AUTO) 0.1 X10'3 (0-0.2); BASOPHILS % (AUTO) 0.6 % (0-1); EOSINOPHILS # (AUTO) 0.2 X10'3 (0-0.9); EOSINOPHILS % (AUTO) 1.8 % (0-6); HEMOGLOBIN 7.2 g/dl (14.0-17.9); LYMPHOCYTES # (AUTO) 0.8 X10'3 (1.1-4.8); MEAN CORPUSCULAR HEMOGLOBIN 35.4 PG (27.0-31.0); MEAN CORPUSCULAR HGB CONC 34.4 g/dL (33.0-36.5); MEAN CORPUSCULAR VOLUME 102.9 FL (78-98); MEAN PLATELET VOLUME 8.4 FL (7.4-10.4); MONOCYTES # (AUTO) 0.8 X10'3 (0-0.9); MONOCYTES % (AUTO) 8.5 % (2-12); NEUTROPHILS # (AUTO) 7.9 X10'3 (1.8-7.7); NEUTROPHILS % (AUTO) 81.1 % (42-75); PLATELET COUNT 81 X10'3 (140-440); RED BLOOD COUNT 2.02 X10'6 (4.70-6.10); WHITE BLOOD COUNT 9.7 X10'3 (4.5-11.0)
[2023-11-23 07:20] LABS: ALKALINE PHOSPHATASE 113 IU/L (46-116); ANION GAP 11 (8-16); BLOOD UREA NITROGEN 48 MG/DL (7-18); CALCIUM 7.6 MG/DL (8.5-10.1); CHLORIDE 108 MMOL/L (99-107); SODIUM 137 MMOL/L (135-145)
[2023-11-23 07:32] LABS: ALBUMIN/GLOBULIN RATIO 1.8 (1.1-1.5); TOTAL PROTEIN 4.7 G/DL (6.4-8.2)
[2023-11-23 07:33] LABS: ALANINE AMINOTRANSFERASE 67 U/L (12-78); ASPARTATE AMINO TRANSFERASE 84 U/L (10-37); BILIRUBIN,TOTAL 35.3 MG/DL (0.1-1.0); BUN/CREATININE RATIO 15.6 (10.0-20.0); CREATININE 3.07 MG/DL (0.60-1.10); GLUCOSE 158 MG/DL (70-104); MAGNESIUM 2.1 MG/DL (1.5-2.4); PHOSPHORUS 3.4 MG/DL (2.3-4.5); POTASSIUM 3.5 MMOL/L (3.5-5.1); eCRCL 30 ML/MIN; eGFR 21 ML/MIN
[2023-11-23 07:48] LABS: HEMATOCRIT 20.8 % (42.0-52.0)
[2023-11-23 11:50] LABS: ABG BASE EXCESS -6.8 mmol/L (-2.0-2.0); ABG HCO3 15.9 mmol/L (22.0-26.0); ABG OXYGEN SATURATION 95.3 % (94-97); ABG PH (T) 7.477 (7.340-7.440); ABG PO2 (T) 69.3 mmHg (75.0-100.0); ALLEN'S TEST POSITIVE; FCOHb 3.7 % (0.0-3.9); FHHb 4.5 % (0.0-5.0); FMetHb 0.3 % (0.0-1.5); FO2Hb 91.5 % (94-97); MODE ROOM AIR; PATIENT TEMPERATURE 36.7; TOTAL HEMOGLOBIN 7.4 G/dl (14.0-17.9)
[2023-11-23] MEDS: albuterol 2.5 MG/3 ML nebule NEB PRN (12:18)
[2023-11-24] VITALS (7 sets, daily range): BP systolic 120–133; BP diastolic 53–68; PULSE 76–85; RESP 15–18; TEMP 98–98.4; O2SAT 94–96
[2023-11-24 08:23] LABS: BILIRUBIN,URINE LARGE (Neg); CLARITY,URINE CLOUDY (Clear); COLOR,URINE YELLOW (Yellow); GLUCOSE, URINE NEGATIVE (Neg); KETONES,URINE NEGATIVE (Neg); LEUKOCYTE ESTERASE ,URINE SMALL (Neg); NITRITES, URINE NEGATIVE (Neg); OCCULT BLOOD,URINE NEGATIVE (Neg); PROTEIN,URINE NEGATIVE (Neg); UROBILINOGEN,URINE 0.2 E.U/dL (0.2-1.0)
[2023-11-24 08:23] LABS: BASOPHILS % (AUTO) 0.3 % (0-1); EOSINOPHILS # (AUTO) 0.1 X10'3 (0-0.9); EOSINOPHILS % (AUTO) 1.3 % (0-6); HEMOGLOBIN 7.1 g/dl (14.0-17.9); LYMPHOCYTES # (AUTO) 0.7 X10'3 (1.1-4.8); LYMPHOCYTES % (AUTO) 6.4 % (21-51); MEAN CORPUSCULAR HEMOGLOBIN 34.6 PG (27.0-31.0); MEAN CORPUSCULAR HGB CONC 33.6 g/dL (33.0-36.5); MEAN CORPUSCULAR VOLUME 103.1 FL (78-98); MEAN PLATELET VOLUME 8.8 FL (7.4-10.4); MONOCYTES % (AUTO) 9.4 % (2-12); NEUTROPHILS # (AUTO) 8.6 X10'3 (1.8-7.7); NEUTROPHILS % (AUTO) 82.6 % (42-75); PLATELET COUNT 79 X10'3 (140-440); RED BLOOD COUNT 2.04 X10'6 (4.70-6.10); WHITE BLOOD COUNT 10.5 X10'3 (4.5-11.0)
[2023-11-24 08:29] LABS: UA COLLECTION TYPE NON-SPECIFIED
[2023-11-24 08:30] LABS: SQUAMOUS EPITHELIAL CELL,UR FEW /LPF (FEW)
[2023-11-24 08:31] LABS: RBC,URINE 0-2 /HPF (0-2); WBC,URINE 0-4 /HPF (0-4); YEAST MANY /HPF (NEGATIVE)
[2023-11-24 08:32] LABS: BACTERIA,URINE FEW /HPF (Neg)
[2023-11-24 08:41] LABS: ALBUMIN 2.9 G/DL (3.4-5.0); ALKALINE PHOSPHATASE 102 IU/L (46-116); ANION GAP 14 (8-16); BLOOD UREA NITROGEN 48 MG/DL (7-18); CALCIUM 7.6 MG/DL (8.5-10.1); CHLORIDE 104 MMOL/L (99-107); SODIUM 138 MMOL/L (135-145); TOTAL CARBON DIOXIDE 20.4 MMOL/L (24-32)
[2023-11-24 08:41] LABS: TOTAL PROTEIN,URINE RANDOM 22.7 MG/DL
[2023-11-24 08:49] LABS: ALANINE AMINOTRANSFERASE 56 U/L (12-78); ASPARTATE AMINO TRANSFERASE 74 U/L (10-37)
[2023-11-24 08:51] LABS: ALBUMIN/GLOBULIN RATIO 1.6 (1.1-1.5); BUN/CREATININE RATIO 16.7 (10.0-20.0); CREATININE 2.88 MG/DL (0.60-1.10); GLUCOSE 170 MG/DL (70-104); MAGNESIUM 1.8 MG/DL (1.5-2.4); PHOSPHORUS 3.4 MG/DL (2.3-4.5); TOTAL PROTEIN 4.7 G/DL (6.4-8.2); eCRCL 32 ML/MIN; eGFR 23 ML/MIN
[2023-11-24 08:52] LABS: BILIRUBIN,TOTAL 33.9 MG/DL (0.1-1.0); POTASSIUM 3.1 MMOL/L (3.5-5.1)
[2023-11-24 10:05] LABS: UA EOSINOPHILS NO EOS /HPF
[2023-11-25] VITALS (14 sets, daily range): BP systolic 100–126; BP diastolic 53–65; PULSE 68–88; RESP 13–22; TEMP 97.5–100.5; O2SAT 95–98
[2023-11-25 07:59] LABS: BASOPHILS % (AUTO) 0.2 % (0-1); EOSINOPHILS # (AUTO) 0.2 X10'3 (0-0.9); EOSINOPHILS % (AUTO) 1.5 % (0-6); LYMPHOCYTES # (AUTO) 0.9 X10'3 (1.1-4.8); LYMPHOCYTES % (AUTO) 8.3 % (21-51); MEAN CORPUSCULAR HEMOGLOBIN 35.4 PG (27.0-31.0); MEAN CORPUSCULAR HGB CONC 34.4 g/dL (33.0-36.5); MEAN CORPUSCULAR VOLUME 102.7 FL (78-98); MEAN PLATELET VOLUME 8.7 FL (7.4-10.4); MONOCYTES # (AUTO) 1.1 X10'3 (0-0.9); MONOCYTES % (AUTO) 10.4 % (2-12); NEUTROPHILS # (AUTO) 8.5 X10'3 (1.8-7.7); NEUTROPHILS % (AUTO) 79.6 % (42-75); PLATELET COUNT 68 X10'3 (140-440); RED BLOOD COUNT 1.99 X10'6 (4.70-6.10); RED CELL DISTRIBUTION WIDTH 20.3 % (11.5-14.5); WHITE BLOOD COUNT 10.7 X10'3 (4.5-11.0)
[2023-11-25 08:11] LABS: HEMATOCRIT 20.4 % (42.0-52.0)
[2023-11-25 08:23] LABS: ALBUMIN 2.6 G/DL (3.4-5.0); ALKALINE PHOSPHATASE 111 IU/L (46-116); ANION GAP 11 (8-16); BLOOD UREA NITROGEN 50 MG/DL (7-18); CALCIUM 7.4 MG/DL (8.5-10.1); CHLORIDE 102 MMOL/L (99-107); SODIUM 136 MMOL/L (135-145); TOTAL CARBON DIOXIDE 22.8 MMOL/L (24-32)
[2023-11-25 08:27] LABS: ALANINE AMINOTRANSFERASE 65 U/L (12-78); ALBUMIN/GLOBULIN RATIO 1.4 (1.1-1.5); ASPARTATE AMINO TRANSFERASE 84 U/L (10-37); BILIRUBIN,TOTAL 32.7 MG/DL (0.1-1.0); BUN/CREATININE RATIO 15.5 (10.0-20.0); CREATININE 3.22 MG/DL (0.60-1.10); GLUCOSE 231 MG/DL (70-104); MAGNESIUM 1.8 MG/DL (1.5-2.4); PHOSPHORUS 3.4 MG/DL (2.3-4.5); POTASSIUM 3.3 MMOL/L (3.5-5.1); TOTAL PROTEIN 4.4 G/DL (6.4-8.2); eCRCL 28 ML/MIN; eGFR 20 ML/MIN
[2023-11-25 08:47] LABS: ANISOCYTOSIS 3+; HYPOCHROMASIA 2+; PLATELET ESTIMATE DECREASED; STOMATOCYTES 1+; TOTAL CELLS COUNTED 100
[2023-11-25] MEDS ORDERED: polyvinyl alcohol eye drops 15ML BOTTLE EACHEYE PRN (10:15)
[2023-11-25 10:53] LABS: FERRITIN 142 NG/ML (26-388)
[2023-11-25 11:13] LABS: % IRON SATURATION 28 % (11-46); IRON 21 UG/DL (53-167); TOTAL IRON BINDING CAPACITY 74 UG/DL (259-388)
[2023-11-25] MEDS ORDERED: PEG 400/HYPROMELLOSE/GLYCERIN 15ml bottle EACHEYE PRN (11:30)
[2023-11-25 20:16] LABS: BASOPHILS % (AUTO) 0.3 % (0-1); EOSINOPHILS # (AUTO) 0.2 X10'3 (0-0.9); EOSINOPHILS % (AUTO) 1.6 % (0-6); HEMATOCRIT 23.6 % (42.0-52.0); HEMOGLOBIN 8.1 g/dl (14.0-17.9); LYMPHOCYTES # (AUTO) 0.8 X10'3 (1.1-4.8); LYMPHOCYTES % (AUTO) 7.7 % (21-51); MEAN CORPUSCULAR HEMOGLOBIN 34.7 PG (27.0-31.0); MEAN CORPUSCULAR HGB CONC 34.2 g/dL (33.0-36.5); MEAN CORPUSCULAR VOLUME 101.3 FL (78-98); MONOCYTES # (AUTO) 1.1 X10'3 (0-0.9); MONOCYTES % (AUTO) 10.8 % (2-12); NEUTROPHILS # (AUTO) 8.3 X10'3 (1.8-7.7); NEUTROPHILS % (AUTO) 79.6 % (42-75); PLATELET COUNT 65 X10'3 (140-440); RED BLOOD COUNT 2.33 X10'6 (4.70-6.10); RED CELL DISTRIBUTION WIDTH 19.6 % (11.5-14.5); WHITE BLOOD COUNT 10.4 X10'3 (4.5-11.0)
[2023-11-26] VITALS (9 sets, daily range): BP systolic 118–125; BP diastolic 56–64; PULSE 68–76; RESP 14–20; TEMP 98.1–99.5; O2SAT 92–98
[2023-11-26 06:49] LABS: BASOPHILS % (AUTO) 0.3 % (0-1); EOSINOPHILS # (AUTO) 0.2 X10'3 (0-0.9); EOSINOPHILS % (AUTO) 1.9 % (0-6); HEMATOCRIT 23.4 % (42.0-52.0); HEMOGLOBIN 7.9 g/dl (14.0-17.9); LYMPHOCYTES # (AUTO) 1.1 X10'3 (1.1-4.8); LYMPHOCYTES % (AUTO) 9.5 % (21-51); MEAN CORPUSCULAR HEMOGLOBIN 34.7 PG (27.0-31.0); MEAN CORPUSCULAR HGB CONC 33.9 g/dL (33.0-36.5); MEAN CORPUSCULAR VOLUME 102.2 FL (78-98); MEAN PLATELET VOLUME 9.3 FL (7.4-10.4); MONOCYTES # (AUTO) 1.2 X10'3 (0-0.9); MONOCYTES % (AUTO) 10.7 % (2-12); NEUTROPHILS # (AUTO) 8.7 X10'3 (1.8-7.7); NEUTROPHILS % (AUTO) 77.6 % (42-75); PLATELET COUNT 76 X10'3 (140-440); RED BLOOD COUNT 2.29 X10'6 (4.70-6.10); RED CELL DISTRIBUTION WIDTH 20.6 % (11.5-14.5); WHITE BLOOD COUNT 11.2 X10'3 (4.5-11.0)
[2023-11-26 06:58] LABS: ALBUMIN 2.4 G/DL (3.4-5.0); ALKALINE PHOSPHATASE 113 IU/L (46-116); ANION GAP 11 (8-16); BLOOD UREA NITROGEN 52 MG/DL (7-18); CALCIUM 7.6 MG/DL (8.5-10.1); CHLORIDE 102 MMOL/L (99-107); SODIUM 136 MMOL/L (135-145); TOTAL CARBON DIOXIDE 22.7 MMOL/L (24-32)
[2023-11-26 07:05] LABS: ALANINE AMINOTRANSFERASE 63 U/L (12-78); ALBUMIN/GLOBULIN RATIO 1.3 (1.1-1.5); ASPARTATE AMINO TRANSFERASE 87 U/L (10-37); BILIRUBIN,TOTAL 35.2 MG/DL (0.1-1.0); BUN/CREATININE RATIO 16.4 (10.0-20.0); CREATININE 3.17 MG/DL (0.60-1.10); GLUCOSE 204 MG/DL (70-104); MAGNESIUM 1.9 MG/DL (1.5-2.4); PHOSPHORUS 3.7 MG/DL (2.3-4.5); POTASSIUM 3.5 MMOL/L (3.5-5.1); TOTAL PROTEIN 4.3 G/DL (6.4-8.2); eCRCL 29 ML/MIN; eGFR 21 ML/MIN
[2023-11-26] MEDS: LORazepam 1 MG tablet PO PRN (22:02)
[2023-11-27 02:00] VITALS: BP 120/69; PULSE 75; RESP 20; TEMP 98.4; O2SAT 98
[2023-11-27 06:00] VITALS: BP 120/53; PULSE 72; RESP 18; TEMP 98.2; O2SAT 93
[2023-11-27 07:23] LABS: EOSINOPHILS # (AUTO) 0.3 X10'3 (0-0.9); HEMOGLOBIN 7.8 g/dl (14.0-17.9); MEAN PLATELET VOLUME 8.9 FL (7.4-10.4); MONOCYTES # (AUTO) 0.9 X10'3 (0-0.9); RED BLOOD COUNT 2.25 X10'6 (4.70-6.10)
[2023-11-27 07:25] LABS: BASOPHILS % (AUTO) 0.5 % (0-1); EOSINOPHILS % (AUTO) 2.7 % (0-6); HEMATOCRIT 22.9 % (42.0-52.0); LYMPHOCYTES % (AUTO) 10.6 % (21-51); MEAN CORPUSCULAR HEMOGLOBIN 34.6 PG (27.0-31.0); MEAN CORPUSCULAR VOLUME 101.8 FL (78-98); MONOCYTES % (AUTO) 10.2 % (2-12); PLATELET COUNT 68 X10'3 (140-440); RED CELL DISTRIBUTION WIDTH 20.3 % (11.5-14.5); WHITE BLOOD COUNT 9.3 X10'3 (4.5-11.0)
[2023-11-27 07:48] LABS: ALANINE AMINOTRANSFERASE 69 U/L (12-78); ALBUMIN 2.1 G/DL (3.4-5.0); ALKALINE PHOSPHATASE 123 IU/L (46-116); ANION GAP 8 (8-16); BLOOD UREA NITROGEN 50 MG/DL (7-18); CALCIUM 7.4 MG/DL (8.5-10.1); CHLORIDE 100 MMOL/L (99-107); MAGNESIUM 1.9 MG/DL (1.5-2.4); SODIUM 135 MMOL/L (135-145); TOTAL CARBON DIOXIDE 27.1 MMOL/L (24-32)
[2023-11-27 08:00] VITALS: RESP 18; O2SAT 93
[2023-11-27 08:01] LABS: ASPARTATE AMINO TRANSFERASE 103 U/L (10-37); BUN/CREATININE RATIO 16.8 (10.0-20.0); CREATININE 2.97 MG/DL (0.60-1.10); GLUCOSE 174 MG/DL (70-104); PHOSPHORUS 3.6 MG/DL (2.3-4.5); POTASSIUM 3.4 MMOL/L (3.5-5.1); TOTAL PROTEIN 4.3 G/DL (6.4-8.2); eCRCL 31 ML/MIN; eGFR 22 ML/MIN
[2023-11-27 11:00] VITALS: BP 112/56; PULSE 70; RESP 20; TEMP 97.7; O2SAT 94
[2023-11-27 15:00] VITALS: BP 112/64; PULSE 67; RESP 14; TEMP 97.5; O2SAT 93
[2023-11-27] MEDS: potassium Cl 20 mEq SR tablet PO SCH (19:33)
[2023-11-27 22:00] VITALS: BP 115/68; PULSE 72; RESP 20; TEMP 98; O2SAT 94
[2023-11-28 02:00] VITALS: BP 114/64; PULSE 74; RESP 14; TEMP 97.8; O2SAT 94
[2023-11-28 08:00] VITALS: RESP 16; O2SAT 96
[2023-11-28 09:43] LABS: BASOPHILS # (AUTO) 0.1 X10'3 (0-0.2); BASOPHILS % (AUTO) 0.7 % (0-1); EOSINOPHILS # (AUTO) 0.3 X10'3 (0-0.9); EOSINOPHILS % (AUTO) 3.9 % (0-6); HEMATOCRIT 24.8 % (42.0-52.0); HEMOGLOBIN 8.2 g/dl (14.0-17.9); LYMPHOCYTES % (AUTO) 11.2 % (21-51); MEAN CORPUSCULAR HEMOGLOBIN 34.2 PG (27.0-31.0); MEAN CORPUSCULAR HGB CONC 32.9 g/dL (33.0-36.5); MEAN CORPUSCULAR VOLUME 103.8 FL (78-98); MEAN PLATELET VOLUME 9.2 FL (7.4-10.4); MONOCYTES # (AUTO) 0.8 X10'3 (0-0.9); MONOCYTES % (AUTO) 9.3 % (2-12); NEUTROPHILS # (AUTO) 6.5 X10'3 (1.8-7.7); NEUTROPHILS % (AUTO) 74.9 % (42-75); PLATELET COUNT 63 X10'3 (140-440); RED BLOOD COUNT 2.39 X10'6 (4.70-6.10); RED CELL DISTRIBUTION WIDTH 19.8 % (11.5-14.5); WHITE BLOOD COUNT 8.7 X10'3 (4.5-11.0)
[2023-11-28 09:57] LABS: ALANINE AMINOTRANSFERASE 75 U/L (12-78); ALBUMIN 2.2 G/DL (3.4-5.0); ALKALINE PHOSPHATASE 131 IU/L (46-116); ANION GAP 7 (8-16); BLOOD UREA NITROGEN 47 MG/DL (7-18); BUN/CREATININE RATIO 16.8 (10.0-20.0); CALCIUM 7.9 MG/DL (8.5-10.1); CHLORIDE 100 MMOL/L (99-107); CREATININE 2.79 MG/DL (0.60-1.10); SODIUM 132 MMOL/L (135-145); TOTAL CARBON DIOXIDE 24.8 MMOL/L (24-32); eCRCL 33 ML/MIN; eGFR 24 ML/MIN
[2023-11-28 09:58] LABS: ALBUMIN/GLOBULIN RATIO 0.9 (1.1-1.5); ASPARTATE AMINO TRANSFERASE 109 U/L (10-37); BILIRUBIN,TOTAL 28.7 MG/DL (0.1-1.0); GLUCOSE 168 MG/DL (70-104); POTASSIUM 3.4 MMOL/L (3.5-5.1); TOTAL PROTEIN 4.7 G/DL (6.4-8.2)
[2023-11-28] MEDS: furosemide 40mg tablet PO SCH (13:29)
[2023-11-28] MEDS: spironolactone 50 MG tablet PO SCH (13:29)
[2023-11-28] MEDS ORDERED: LORazepam 1 MG tablet PO PRN (14:30)
[2023-11-28] MEDS ORDERED: LORazepam 2 mg/ml vial IV PRN (14:30)
[2023-11-28 15:00] VITALS: BP 145/67; PULSE 67; RESP 15; TEMP 97.8; O2SAT 94
[2023-11-28 18:00] VITALS: BP 120/64; PULSE 68; RESP 20; TEMP 99.5; O2SAT 94
[2023-11-28 20:00] VITALS: RESP 20; O2SAT 94
[2023-11-28 22:00] VITALS: BP 137/60; PULSE 71; RESP 17; TEMP 97.8; O2SAT 95
[2023-11-29 02:00] VITALS: BP 134/59; PULSE 69; RESP 15; TEMP 97.3; O2SAT 94
[2023-11-29 08:00] VITALS: RESP 18; O2SAT 98
[2023-11-29 11:00] VITALS: BP 108/58; PULSE 67; RESP 14; TEMP 97.8; O2SAT 94
[2023-11-29 18:00] VITALS: BP 132/63; PULSE 83; RESP 16; TEMP 97.9; O2SAT 93
[2023-11-29 22:00] VITALS: BP 125/62; PULSE 73; RESP 19; TEMP 98; O2SAT 96
[2023-11-30] VITALS (7 sets, daily range): BP systolic 111–138; BP diastolic 50–65; PULSE 17–76; RESP 10–20; TEMP 97.6–98; O2SAT 95–98
[2023-11-30 07:15] LABS: BASOPHILS # (AUTO) 0.1 X10'3 (0-0.2); BASOPHILS % (AUTO) 0.9 % (0-1); EOSINOPHILS # (AUTO) 0.5 X10'3 (0-0.9); EOSINOPHILS % (AUTO) 5.6 % (0-6); HEMATOCRIT 24.5 % (42.0-52.0); HEMOGLOBIN 8.1 g/dl (14.0-17.9); LYMPHOCYTES % (AUTO) 12.1 % (21-51); MEAN CORPUSCULAR HEMOGLOBIN 34.3 PG (27.0-31.0); MEAN PLATELET VOLUME 8.7 FL (7.4-10.4); MONOCYTES # (AUTO) 0.7 X10'3 (0-0.9); MONOCYTES % (AUTO) 7.6 % (2-12); NEUTROPHILS # (AUTO) 6.4 X10'3 (1.8-7.7); NEUTROPHILS % (AUTO) 73.8 % (42-75); PLATELET COUNT 71 X10'3 (140-440); RED BLOOD COUNT 2.36 X10'6 (4.70-6.10); RED CELL DISTRIBUTION WIDTH 19.9 % (11.5-14.5); WHITE BLOOD COUNT 8.6 X10'3 (4.5-11.0)
[2023-11-30 07:20] LABS: ALANINE AMINOTRANSFERASE 68 U/L (12-78); ALBUMIN 1.9 G/DL (3.4-5.0); ALKALINE PHOSPHATASE 139 IU/L (46-116); ANION GAP 8 (8-16); BILIRUBIN,TOTAL 21.7 MG/DL (0.1-1.0); BLOOD UREA NITROGEN 42 MG/DL (7-18); CALCIUM 7.5 MG/DL (8.5-10.1); CHLORIDE 104 MMOL/L (99-107); SODIUM 137 MMOL/L (135-145); TOTAL CARBON DIOXIDE 24.9 MMOL/L (24-32)
[2023-11-30 07:29] LABS: ALBUMIN/GLOBULIN RATIO 0.7 (1.1-1.5); ASPARTATE AMINO TRANSFERASE 86 U/L (10-37); BUN/CREATININE RATIO 15.7 (10.0-20.0); CREATININE 2.67 MG/DL (0.60-1.10); GLUCOSE 134 MG/DL (70-104); PHOSPHORUS 3.7 MG/DL (2.3-4.5); POTASSIUM 3.9 MMOL/L (3.5-5.1); TOTAL PROTEIN 4.5 G/DL (6.4-8.2); eCRCL 34 ML/MIN; eGFR 25 ML/MIN
[2023-11-30 08:10] LABS: ANISOCYTOSIS 2+; PLATELET ESTIMATE DECREASED; STOMATOCYTES FEW
[2023-11-30 08:11] LABS: TARGET CELLS FEW
[2023-12-01 02:00] VITALS: BP 123/80; PULSE 75; RESP 19; TEMP 97.6; O2SAT 97
[2023-12-01 05:37] LABS: BASOPHILS # (AUTO) 0.1 X10'3 (0-0.2); EOSINOPHILS # (AUTO) 0.5 X10'3 (0-0.9); EOSINOPHILS % (AUTO) 6.4 % (0-6); HEMATOCRIT 25.4 % (42.0-52.0); HEMOGLOBIN 8.4 g/dl (14.0-17.9); LYMPHOCYTES # (AUTO) 1.1 X10'3 (1.1-4.8); LYMPHOCYTES % (AUTO) 13.1 % (21-51); MEAN CORPUSCULAR HEMOGLOBIN 34.4 PG (27.0-31.0); MEAN CORPUSCULAR HGB CONC 33.1 g/dL (33.0-36.5); MEAN CORPUSCULAR VOLUME 103.7 FL (78-98); MONOCYTES # (AUTO) 0.7 X10'3 (0-0.9); MONOCYTES % (AUTO) 8.4 % (2-12); NEUTROPHILS # (AUTO) 5.7 X10'3 (1.8-7.7); NEUTROPHILS % (AUTO) 71.1 % (42-75); PLATELET COUNT 75 X10'3 (140-440); RED BLOOD COUNT 2.44 X10'6 (4.70-6.10); WHITE BLOOD COUNT 8.1 X10'3 (4.5-11.0)
[2023-12-01 06:00] VITALS: BP 109/58; PULSE 67; RESP 18; TEMP 98.7; O2SAT 97
[2023-12-01 06:09] LABS: ALANINE AMINOTRANSFERASE 68 U/L (12-78); ALBUMIN 1.9 G/DL (3.4-5.0); ALKALINE PHOSPHATASE 151 IU/L (46-116); ANION GAP 10 (8-16); BILIRUBIN,TOTAL 17.7 MG/DL (0.1-1.0); BLOOD UREA NITROGEN 34 MG/DL (7-18); BUN/CREATININE RATIO 13.2 (10.0-20.0); CALCIUM 7.6 MG/DL (8.5-10.1); CHLORIDE 102 MMOL/L (99-107); CREATININE 2.57 MG/DL (0.60-1.10); SODIUM 135 MMOL/L (135-145); TOTAL CARBON DIOXIDE 23.3 MMOL/L (24-32); eCRCL 35 ML/MIN; eGFR 26 ML/MIN
[2023-12-01 06:21] LABS: ASPARTATE AMINO TRANSFERASE 80 U/L (10-37)
[2023-12-01 06:22] LABS: ALBUMIN/GLOBULIN RATIO 0.6 (1.1-1.5); GLUCOSE 165 MG/DL (70-104); PHOSPHORUS 3.8 MG/DL (2.3-4.5); TOTAL PROTEIN 4.9 G/DL (6.4-8.2)
[2023-12-01 06:25] LABS: POTASSIUM 4.1 MMOL/L (3.5-5.1)
[2023-12-01 09:11] LABS: C-REACTIVE PROTEIN 2.41 MG/DL (0.0-0.5)
[2023-12-01 11:00] VITALS: BP 104/61; PULSE 64; RESP 18; TEMP 98.8; O2SAT 97
[2023-12-01 15:00] VITALS: BP 118/60; PULSE 63; RESP 16; TEMP 97.3; O2SAT 97
[2023-12-01] MEDS: albumin (human) 25% 100 ML IV solution IV ONE (16:15)
[2023-12-01] MEDS ORDERED: hydrALAZINE 20mg/ml inj. IV ONE (17:20)
[2023-12-01 18:00] VITALS: BP 131/62; PULSE 73; RESP 14; TEMP 97.8; O2SAT 98
[2023-12-01] MEDS: furosemide 40mg tablet PO SCH (19:38)
[2023-12-02 02:00] VITALS: BP 115/63; PULSE 73; RESP 16; TEMP 97.4; O2SAT 97
[2023-12-02 06:31] LABS: BASOPHILS % (AUTO) 0.7 % (0-1); EOSINOPHILS # (AUTO) 0.5 X10'3 (0-0.9); EOSINOPHILS % (AUTO) 6.4 % (0-6); HEMATOCRIT 24.6 % (42.0-52.0); HEMOGLOBIN 8.1 g/dl (14.0-17.9); LYMPHOCYTES % (AUTO) 14.1 % (21-51); MEAN CORPUSCULAR HEMOGLOBIN 34.5 PG (27.0-31.0); MEAN CORPUSCULAR VOLUME 104.4 FL (78-98); MEAN PLATELET VOLUME 8.9 FL (7.4-10.4); MONOCYTES # (AUTO) 0.6 X10'3 (0-0.9); MONOCYTES % (AUTO) 8.2 % (2-12); NEUTROPHILS # (AUTO) 5.1 X10'3 (1.8-7.7); NEUTROPHILS % (AUTO) 70.6 % (42-75); PLATELET COUNT 75 X10'3 (140-440); RED BLOOD COUNT 2.35 X10'6 (4.70-6.10); RED CELL DISTRIBUTION WIDTH 19.6 % (11.5-14.5); WHITE BLOOD COUNT 7.2 X10'3 (4.5-11.0)
[2023-12-02 06:46] LABS: ALANINE AMINOTRANSFERASE 62 U/L (12-78); ALBUMIN 2.2 G/DL (3.4-5.0); ALKALINE PHOSPHATASE 140 IU/L (46-116); ANION GAP 10 (8-16); BILIRUBIN,TOTAL 15.6 MG/DL (0.1-1.0); BLOOD UREA NITROGEN 35 MG/DL (7-18); CALCIUM 7.8 MG/DL (8.5-10.1); CHLORIDE 104 MMOL/L (99-107); MAGNESIUM 1.9 MG/DL (1.5-2.4); SODIUM 138 MMOL/L (135-145); TOTAL CARBON DIOXIDE 24.2 MMOL/L (24-32)
[2023-12-02 06:48] LABS: ALBUMIN/GLOBULIN RATIO 0.8 (1.1-1.5); ASPARTATE AMINO TRANSFERASE 71 U/L (10-37); BUN/CREATININE RATIO 13.1 (10.0-20.0); CREATININE 2.67 MG/DL (0.60-1.10); GLUCOSE 138 MG/DL (70-104); PHOSPHORUS 4.1 MG/DL (2.3-4.5); POTASSIUM 4.1 MMOL/L (3.5-5.1); TOTAL PROTEIN 5.1 G/DL (6.4-8.2); eCRCL 34 ML/MIN; eGFR 25 ML/MIN
[2023-12-02 07:00] VITALS: BP 126/51; PULSE 73; RESP 18; TEMP 99.1; O2SAT 96
[2023-12-02 07:35] LABS: PLATELET ESTIMATE DECREASED
[2023-12-02 07:36] LABS: ANISOCYTOSIS 2+; HYPOCHROMASIA 1+; POLYCHROMASIA 1+
[2023-12-02 07:37] LABS: SCHISTOCYTES FEW; TEAR DROP CELLS FEW
[2023-12-02 07:38] LABS: TARGET CELLS FEW
[2023-12-02] MEDS: prednisone 10mg tablet PO SCH (08:41)
[2023-12-02 11:00] VITALS: BP 115/64; PULSE 65; RESP 17; TEMP 99.4; O2SAT 96
[2023-12-02 15:00] VITALS: BP 113/62; PULSE 77; RESP 19; TEMP 98.2; O2SAT 98
[2023-12-02 18:00] VITALS: BP 120/55; PULSE 74; RESP 18; TEMP 98.3; O2SAT 96
[2023-12-02 20:00] VITALS: RESP 18; O2SAT 96
[2023-12-03 00:48] VITALS: BP 131/56; PULSE 75; RESP 16; TEMP 99.2; O2SAT 98
[2023-12-03 06:39] LABS: BASOPHILS % (AUTO) 0.3 % (0-1); EOSINOPHILS # (AUTO) 0.2 X10'3 (0-0.9); EOSINOPHILS % (AUTO) 2.3 % (0-6); HEMATOCRIT 25.3 % (42.0-52.0); HEMOGLOBIN 8.3 g/dl (14.0-17.9); LYMPHOCYTES # (AUTO) 1.1 X10'3 (1.1-4.8); LYMPHOCYTES % (AUTO) 11.8 % (21-51); MEAN CORPUSCULAR HEMOGLOBIN 34.3 PG (27.0-31.0); MEAN CORPUSCULAR VOLUME 104.2 FL (78-98); MEAN PLATELET VOLUME 8.8 FL (7.4-10.4); MONOCYTES # (AUTO) 0.8 X10'3 (0-0.9); MONOCYTES % (AUTO) 8.9 % (2-12); NEUTROPHILS # (AUTO) 7.2 X10'3 (1.8-7.7); NEUTROPHILS % (AUTO) 76.7 % (42-75); PLATELET COUNT 94 X10'3 (140-440); RED BLOOD COUNT 2.43 X10'6 (4.70-6.10); RED CELL DISTRIBUTION WIDTH 18.8 % (11.5-14.5); WHITE BLOOD COUNT 9.4 X10'3 (4.5-11.0)
[2023-12-03 07:00] VITALS: BP 113/62; PULSE 68; RESP 16; TEMP 98; O2SAT 98
[2023-12-03 07:05] LABS: ALANINE AMINOTRANSFERASE 59 U/L (12-78); ALBUMIN 2.2 G/DL (3.4-5.0); ALKALINE PHOSPHATASE 126 IU/L (46-116); ANION GAP 11 (8-16); ASPARTATE AMINO TRANSFERASE 61 U/L (10-37); BILIRUBIN,TOTAL 12.7 MG/DL (0.1-1.0); BLOOD UREA NITROGEN 37 MG/DL (7-18); BUN/CREATININE RATIO 13.9 (10.0-20.0); CALCIUM 7.8 MG/DL (8.5-10.1); CHLORIDE 102 MMOL/L (99-107); CREATININE 2.67 MG/DL (0.60-1.10); GLUCOSE 187 MG/DL (70-104); SODIUM 135 MMOL/L (135-145); TOTAL CARBON DIOXIDE 22.5 MMOL/L (24-32); eCRCL 34 ML/MIN; eGFR 25 ML/MIN
[2023-12-03 07:14] LABS: ALBUMIN/GLOBULIN RATIO 0.7 (1.1-1.5); PHOSPHORUS 3.9 MG/DL (2.3-4.5); TOTAL PROTEIN 5.2 G/DL (6.4-8.2)
[2023-12-03 11:00] VITALS: BP 113/59; PULSE 72; RESP 14; TEMP 97.1; O2SAT 94
[2023-12-03] MEDS ORDERED: SPIR50TA5 PO (14:04)
[2023-12-03] MEDS ORDERED: PRED10TA PO (14:04)
[2023-12-03] MEDS ORDERED: FURO40TA4 PO (14:04)
[2023-12-03] MEDS ORDERED: thiamine tablet PO (14:04)
[2023-12-03] MEDS ORDERED: FOLI1TAB27 PO (14:04)
[2023-12-03] MEDS ORDERED: CARV6.253 PO (14:04)
== END 2023-12-03 15:44 | disposition home or self-care (01) | DRG 871 ==
LOC: ER 15:02 → PCU 3S 21:15 → UNDOADMIN 11-13 00:08 → ED HOLD 11-13 00:08 → PCU 3S 11-13 00:27 → ED HOLD 11-13 00:27 → PCU 3S 11-18 11:52
PROVIDERS: ADMIT Internal Medicine; ATTEND Internal Medicine
PROC: 30233N1 Transfusion of Nonautologous Red Blood Cells into Peripheral Vein, Percutaneous Approach (ICD-10-PCS; principal; 2023-11-25)
DX: A41.9 Sepsis, unspecified organism (principal); E43 Unspecified severe protein-calorie malnutrition; G93.41 Metabolic encephalopathy; K76.7 Hepatorenal syndrome; R65.21 Severe sepsis with septic shock; N17.0 Acute kidney failure with tubular necrosis; B17.9 Acute viral hepatitis, unspecified; E87.20 Acidosis, unspecified; F10.239 Alcohol dependence with withdrawal, unspecified; K76.6 Portal hypertension; Z20.822 Contact with and (suspected) exposure to COVID-19; E87.6 Hypokalemia; F10.20 Alcohol dependence, uncomplicated; K74.60 Unspecified cirrhosis of liver; E87.8 Other disorders of electrolyte and fluid balance, not elsewhere classified; D64.9 Anemia, unspecified; Z68.30 Body mass index [BMI] 30.0-30.9, adult; E80.6 Other disorders of bilirubin metabolism; K80.20 Calculus of gallbladder without cholecystitis without obstruction; K52.9 Noninfective gastroenteritis and colitis, unspecified; Z79.899 Other long term (current) drug therapy
CPT/HCPCS: 36415; 36430; 36600; 71045; 74176; 76700; 78226; 80053; 80074; 80305; 80329; 81001; 82140; 82272; 82570; 82728; 82803; 82948; 83540; 83550; 83605; 83735; 83880; 84100; 84132; 84145; 84156; 84300; 85007; 85008; 85018; 85025; 85610; 85651; 85730; 86140; 86885; 86900; 86901; 86920; 87040; 87045; 87046; 87081; 87207; 87324; 87449; 87811; 89055; 93005; 93306; 94640; 94760; 96365; 96367; 96375; 97110; 97116; 97161; 97530; 97535; 99285; A4314; A4649; A5200; A6250; A6590; A9537; C1758; C9113; G0378; J1940; J2354; J2543; J2560; J3360; J3370; J3411; J3480; J3490; J7030; J7040; J7050; J7070; J7120; J7512; P9016; P9047